=== PATIENT | male | born 1965 ===

== ENCOUNTER 2022-02-20 21:00 | Inpatient (IN) | payer MEDICAID ==
[2022-02-20] MEDS ORDERED: LORazepam 1 MG TAB PO PRN (21:04)
[2022-02-20] MEDS ORDERED: chlorproMAZINE 25 MG/ML 2 ML AMP IM PRN (21:04)
[2022-02-20] MEDS ORDERED: MAGNESIUM HYDROXIDE 2,400 MG/10 ML CUP PO PRN (21:04)
[2022-02-20] MEDS ORDERED: LORazepam 1 MG/0.5 ML VIAL IM PRN (21:04)
[2022-02-20] MEDS ORDERED: MAG HYDROX/AL HYDROX/SIMETH 30 ML CUP PO PRN (21:04)
[2022-02-20] MEDS ORDERED: chlorproMAZINE 25 MG TAB PO PRN (21:04)
[2022-02-21] MEDS: NICOTINE 14MG/24HR PATCH TRANSDERM SCH (08:55)
[2022-02-21 10:18] LABS: Basophils % (A) 0 %; Eosinophils # (A) 0.2 k/uL (0-0.7); Eosinophils % (A) 2 %; HCT 37.3 % (39.0-53.0); HGB 11.2 gm/dL (13.0-17.5); Hypochromasia Moderate; Lymphocytes # (A) 1.8 k/uL (1.0-4.8); Lymphocytes % (A) 14 %; MCHC 30.1 g/dL (31.0-37.0); MCV 93.2 fL (80.0-100.0); Mean Platelet Volume 7.5; Monocytes # (A) 1.4 k/uL (0-1.0); Monocytes % (A) 11 %; Neutrophils # (A) 8.6 k/uL (1.3-7.7); Neutrophils % (A) 70 %; Platelet Count 227 k/uL (150-450); RDW 13.1 % (11.5-15.5); WBC 12.3 k/uL (3.8-10.6)
[2022-02-21 10:54] LABS: ALT 23 U/L (4-49); AST 30 U/L (17-59); African American GFR (CKD) >90 (>60 ml/min/1.73 sqM); Albumin 3.8 g/dL (3.5-5.0); Alkaline Phosphatase 112 U/L (38-126); Anion Gap 4 mmol/L; Bilirubin, Delta 0.2 mg/dL (0.0-0.2); Blood Urea Nitrogen 16 mg/dL (9-20); Calcium 9.1 mg/dL (8.4-10.2); Carbon Dioxide 30 mmol/L (22-30); Chloride 105 mmol/L (98-107); Glucose 91 mg/dL (74-99); Non-African American GFR(CKD) 79 (>60 ml/min/1.73 sqM); Potassium 4.4 mmol/L (3.5-5.1); Sodium 139 mmol/L (137-145); Total Bilirubin 0.2 mg/dL (0.2-1.3); Total Protein 6.9 g/dL (6.3-8.2)
[2022-02-21] MEDS ORDERED: risperiDONE 1 MG TAB PO STA (11:00)
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
[2022-02-21 14:26] LABS: Chol/HDL Ratio 3.42 Ratio; LDL Cholesterol,Calculated 87.6 mg/dL (0.0-131.0)
[2022-02-21] MEDS: risperiDONE 2 MG TAB PO SCH (20:24)
[2022-02-21] MEDS: ATROPINE OPHTH SOLN 1% 5ML BTL SUBLINGUAL SCH (20:24)
[2022-02-21] MEDS: BENZTROPINE MESYLATE 0.5 MG TAB PO SCH (20:24)
--- NOTE | 2022-02-22 03:36 | P.PN ---
Progress Note - Text Progress Note Date: 02/21/22 Attempted to see the patient in the mental health unit at 2200 on 02/21. The patient was sleeping and was not appropriate for evaluation at that time.
[2022-02-22] MEDS: risperiDONE 2 MG TAB PO SCH (07:53)
[2022-02-22] MEDS: BENZTROPINE MESYLATE 0.5 MG TAB PO SCH ×2 (07:53→21:00)
[2022-02-22] MEDS: ATROPINE OPHTH SOLN 1% 5ML BTL SUBLINGUAL SCH ×2 (07:53→21:00)
[2022-02-22] MEDS: NICOTINE 14MG/24HR PATCH TRANSDERM SCH (07:53)
[2022-02-22] MEDS: ACETAMINOPHEN TAB 325 MG TAB PO PRN (07:55)
--- NOTE | 2022-02-22 13:47 | P.PN ---
Progress Note - Text Progress Note Date: 02/22/22 Interval History: Patient was seen wandering the hallways and was directable and agreeable to speak with policy writer typist in the office. The patient continues to be cooperative and polite although intrusive with a lack of sense for personal boundaries. He does continue to display a labile mood and at times becomes tearful when discussing the recent deaths of family members. He continues to make statements that he is well trained in multiple martial arts and can fight anyone however maintains that he will not hurt anyone around him. He is currently not reporting any suicidal or homicidal ideation, intention, and/or plan. He is not reporting any auditory or visual hallucinations. He denies any paranoia or other delusions. He has been adherent with his medications and is not reporting any significant side effects. He does state that he is happy that he has decreased his drooling. Mental Status Exam: General Appearance: Patient appears to be altered than stated age, is alert, at times difficult to direct, but cooperative. Behavior: Patient displays elevated psychomotor activity and intrusiveness. Speech: Patient's speech is fluent and nonpressured. Loud in volume. Mood/Affect: Mood is bright, affect is congruent and overly friendly. At times can be labile. Suicidality/Homicidality: Patient vehemently denies any suicidal or homicidal ideation. Perceptions: Patient denies any visual hallucinations and denies any auditory hallucinations Though content/process: Some grandiose delusions. Flight of ideas Memory and concentration: AOX3, grossly intact for the purposes of this session Judgment and insight: Improving mildly Vital Signs Temp 97.3 F L 02/21/22 05:47 Pulse 101 H 02/21/22 05:47 Resp 20 02/21/22 05:47 BP 135/81 02/21/22 05:47 Pulse Ox 96 02/21/22 05:47 FiO2 Laboratory Results - Last 24 Hours 02/21/22 02/21/22 09:46 09:[address] Glu mg/dL 122 Hemoglobin A1c 5.9 Triglycerides 121.00 Cholesterol 158.00 LDL Cholesterol, Calc 87.6 VLDL Cholesterol, Calc 24.20 HDL Cholesterol 46.20 Cholesterol/HDL Ratio 3.42 Assessment Schizoaffective disorder, bipolar type Tobacco use disorder Plan: -Patient continues to meet criteria for inpatient psychiatric admission for symptom stabilization and safety. Patient has signed adult voluntary form and medication consent and was placed in patient's chart. -Medications: Increase Risperdal to 3 mg by mouth twice a day for mood stabilization/psychosis Start Depakote 1000 g daily at bedtime for mood stabilization Continue atropine drops sublingual for drooling Cogentin for EPS side effects -When necessary Ativan and Thorazine for agitation/aggression. -NRT - nicotine patch -SW on board for discharge planning. Encouraged the patient to participate in milieu.
[2022-02-22] MEDS: risperiDONE 1 MG TAB PO SCH (21:00)
[2022-02-22] MEDS: DIVALPROEX ER 500 MG TAB.ER.24H PO SCH (21:00)
[2022-02-23] MEDS: ACETAMINOPHEN TAB 325 MG TAB PO PRN (06:12)
[2022-02-23] MEDS: amLODIPine 5 MG TAB PO SCH (09:06)
[2022-02-23] MEDS: NICOTINE 14MG/24HR PATCH TRANSDERM SCH (09:06)
[2022-02-23] MEDS: ATROPINE OPHTH SOLN 1% 5ML BTL SUBLINGUAL SCH ×2 (09:06→21:59)
[2022-02-23] MEDS: BENZTROPINE MESYLATE 0.5 MG TAB PO SCH ×2 (09:07→21:59)
[2022-02-23] MEDS: risperiDONE 1 MG TAB PO SCH ×2 (09:07→21:59)
--- NOTE | 2022-02-23 11:28 | P.PN ---
Progress Note - Text Progress Note Date: 02/23/22 Clinical Problems: Schizoaffective disorder bipolar type, tobacco use Interim history: I reviewed the medical record and interviewed the patient. He was hyperverbal, tangential, pressured and grandiose. He touched several topics including deaths in his family, history of legal problems, his incarceration, his relationship with his children, and problems he is encountered in the community. He talked as though he has had problems with aggressive behavior in the past but denied thoughts of harm to self or others. He attends therapeutic groups and activities and the therapist note that he is intrusive and hyperverbal. He is compliant with prescribed medications and denied side effects. He is posed no management problem and has had no episodes. Mental status exam: He presented as a somewhat disheveled appearing to have [place] male who was pleasant on approach. He made eye contact and appeared to attend to the interview. He had missing front teeth but no prominent physical abnormalities. He had a labile facial depression consistent with his affect. He was restless throughout the interview and at times stood up and gesticulated as he spoke. His speech was spontaneous, pressured with increased rate, volume and rhythm. His affect was markedly labile at times intense and appropriate. He denied suicidal ideation and wishes. He denied homicidal ideation. He denied feeling hopeless, helpless or worthless. He ruminated over multiple topics the most prominent of which appear to be in his past legal problems. He did not express clear ideas of reference or paranoid ideation. He expressed overvalued ideas regarding his martial arts prowess and his athletic abilities. His thinking was concrete and disorganized and at times illogical. He denied hallucinations and did not appear to be responding to internal stimuli. Assessment: He is chronically and severely mentally ill and moderately improve from admission. Plan: [facility] inpatient treatment. Since precautions. Risperidone 3 mg twice a day, Depakote 1000 mg at bedtime and Cogentin 0.5 mg twice a day. Thorazine and or Ativan by mouth or IM when necessary for agitation, aggression acute psychosis. Habitrol for smoking cessation. Encouraged continued participation in therapeutic groups and activities. Evaluate clinical status response to treatment daily basis.
[2022-02-23] MEDS: DIVALPROEX ER 500 MG TAB.ER.24H PO SCH (21:59)
[2022-02-24 07:06] VITALS: BP 106/80; PULSE 99; RESP 18; TEMP 98.1
[2022-02-24] MEDS: NICOTINE 14MG/24HR PATCH TRANSDERM SCH (09:38)
[2022-02-24] MEDS: BENZTROPINE MESYLATE 0.5 MG TAB PO SCH ×2 (09:39→21:54)
[2022-02-24] MEDS: amLODIPine 5 MG TAB PO SCH (09:39)
[2022-02-24] MEDS: risperiDONE 1 MG TAB PO SCH ×2 (09:39→21:54)
[2022-02-24] MEDS: ATROPINE OPHTH SOLN 1% 5ML BTL SUBLINGUAL SCH ×2 (09:40→21:54)
--- NOTE | 2022-02-24 14:37 | P.PN ---
Progress Note - Text Progress Note Date: 02/24/22 Clinical Problems: Schizoaffective disorder bipolar type, tobacco use Interim history: I reviewed the medical record and interviewed the patient. He was hyperverbal and tangential. He touched several topics including deaths in his family, history of legal problems, his incarceration, his relationship with his children, and problems he is encountered in the community. He attends therapeutic groups and activities. He is compliant with prescribed medications and denied side effects. He is posed no management problem and has had no episodes. Mental status exam: He presented as a casually groomed male who was pleasant on approach. He made eye contact and appeared to attend to the interview. He had missing front teeth but no prominent physical abnormalities. He had a blunted facial depression consistent with his affect. He sat throughout the interview. His speech was preferable but not pressured. His affect was labile but not intense. He denied suicidal ideation and wishes. He denied homicidal ideation. He denied feeling hopeless, helpless or worthless. He ruminated over multiple topics the most prominent of which appear to be in his past legal problems. He did not express clear ideas of reference or paranoid ideation. He did not perseverate about overvalued ideas or special abilities. His thinking was concrete and disorganized and at times illogical. He denied hallucinations and did not appear to be responding to internal stimuli. Assessment: He is chronically and severely mentally ill and much improved from admission. Plan: Continue inpatient treatment. Safety precautions. Risperidone 3 mg twice a day, Depakote 1000 mg at bedtime and Cogentin 0.5 mg twice a day. Thorazine and or Ativan by mouth or IM when necessary for agitation, aggression acute psychosis. Habitrol for smoking cessation. Encouraged continued participation in therapeutic groups and activities. Evaluate clinical status response to treatment daily basis.
[2022-02-24] MEDS: DIVALPROEX ER 500 MG TAB.ER.24H PO SCH (21:54)
[2022-02-25] MEDS: risperiDONE 1 MG TAB PO SCH (09:13)
[2022-02-25] MEDS: NICOTINE 14MG/24HR PATCH TRANSDERM SCH (09:13)
[2022-02-25] MEDS: amLODIPine 5 MG TAB PO SCH (09:14)
[2022-02-25] MEDS: ATROPINE OPHTH SOLN 1% 5ML BTL SUBLINGUAL SCH (09:14)
[2022-02-25] MEDS: BENZTROPINE MESYLATE 0.5 MG TAB PO SCH (09:14)
[2022-02-25] MEDS: ACETAMINOPHEN TAB 325 MG TAB PO PRN (09:17)
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
== END 2022-02-25 12:25 | disposition home or self-care (01) | DRG 885 ==
LOC: 3MHU 23:13
PROVIDERS: ADMIT Psychiatry & Neurology Psychiatry; ATTEND Psychiatry & Neurology Psychiatry
DX: F25.9 Schizoaffective disorder, unspecified (principal); R45.851 Suicidal ideations; F17.210 Nicotine dependence, cigarettes, uncomplicated; F25.0 Schizoaffective disorder, bipolar type; K11.7 Disturbances of salivary secretion; Z79.899 Other long term (current) drug therapy; Z87.820 Personal history of traumatic brain injury; Z71.6 Tobacco abuse counseling; Z86.59 Personal history of other mental and behavioral disorders
CPT/HCPCS: 80053; 80061; 82248; 83036; 84443; 85025